=== PATIENT | male | born 1930 | race Caucasian/White ===

== ENCOUNTER → 2017-10-20 | Outpatient (CLI) | payer MEDICARE, BC ==
[~2017-10-20] MED LIST: ACET325 PO; AMOCLA500 PO; ATOR40TA PO; Amox Tr-K Clv1 EAC1 PO; BISA5EC PO; CALC.25 PO; CEPH500 PO; DEBROX; ELIQUIS2.5 MG PO; FURO40 PO; METO25 PO; Micro-K10 MEQ PO; PRADAXA75 MG PO; PROCARDIA PO; Pacerone100 MG PO; SACC250C PO; SODBIC650 PO; Stool Softener100 MG PO; TIROSINT25 MCG PO; [UNRECOGNIZED DRUG - OTHER]
== END | disposition home or self-care (01) ==
LOC: PLD 08:45 → LAB SHORT 08:45
DX: C43.59 Malignant melanoma of other part of trunk (principal)
CPT/HCPCS: 88305

== ENCOUNTER → 2018-03-03 | Outpatient (CLI) | payer MEDICARE, BC ==
[~2018-03-03] MED LIST changes: -ACET325 PO; -AMOCLA500 PO; -BISA5EC PO; -CEPH500 PO; -DEBROX; -ELIQUIS2.5 MG PO; +FURO20 PO; -FURO40 PO; -Micro-K10 MEQ PO; -SACC250C PO; -Stool Softener100 MG PO; -[UNRECOGNIZED DRUG - OTHER]
== END ==
LOC: LAB 15:54 → LAB SHORT 15:54
DX: Z48.817 Encounter for surgical aftercare following surgery on the skin and subcutaneous tissue (principal); Z48.02 Encounter for removal of sutures; L08.9 Local infection of the skin and subcutaneous tissue, unspecified; R60.0 Localized edema
CPT/HCPCS: 87070; 87077; 87186; 87205